=== PATIENT | female | born 1995 | race Two or more races ===

== ENCOUNTER 2018-12-24 08:58 | Emergency (ER) | payer MEDICAID ==
[~2018-12-24] VITALS: Ht 154.9 cm; Wt 48.6 kg
[2018-12-24 09:12] VITALS: BP 110/70
[2018-12-24 09:31] LABS: Basophils # (auto) 0.1 uL; Eosinophils # (auto) 0.1 uL; Hemoglobin 12.2 g/dL (12.2-16.2); Monocytes # (auto) 0.5 uL; Neutrophils # (auto) 4.2 uL; White Blood Cell 6.8 10^3/uL (4.4-10.8)
[2018-12-24 09:33] LABS: Basophils % (auto) 1.2 % (0.0-2.0); Eosinophils % (auto) 1.6 % (0.0-7.0); Hematocrit 38.1 % (36.0-46.0); Lymphocytes % (auto) 28.6 % (10.0-50.0); Mean Corpuscular Hemoglobin 27.3 pg (28.0-32.0); Mean Corpuscular Hgb Conc. 32.1 g/dL (32.0-36.0); Monocytes % (auto) 7.6 % (0.0-12.0); Platelet Count (auto) 329 10^3/uL (140-450); Red Blood Cells 4.48 10^6/uL (4.0-5.20); Red Cell Distribution Width 17.8 % (11.8-14.3)
[2018-12-24 09:48] LABS: Albumin 3.6 g/dL (3.4-5.0); Calcium 8.4 mg/dL (8.5-10.1); Potassium 3.6 mmol/L (3.5-5.1)
[2018-12-24 09:51] LABS: Bilirubin, Total 0.6 mg/dL (0.2-1.0); Total Protein 7.2 g/dL (6.4-8.2)
[2018-12-24 10:06] LABS: Urine Blood 2+ /uL (Negative); Urine Specific Gravity 1.013 (1.001-1.035)
[2018-12-24 10:12] LABS: Urine WBC 5 /hpf (0 - 5)
[2018-12-24 10:13] LABS: Urine Bacteria FEW /hpf (None Seen); Urine Mucus FEW (None Seen)
[2018-12-24] MEDS ORDERED: KETOROLAC TROMETH 60MG/2ML VIAL IM ONE (12:00)
== END 2018-12-24 12:14 | disposition home or self-care (01) ==
LOC: ER 08:58
DX: N93.8 Other specified abnormal uterine and vaginal bleeding (principal)
CPT/HCPCS: 36415; 76856; 80053; 81001; 81025; 84702; 85025; 96372; 99284; J1885

== ENCOUNTER 2019-03-12 23:43 | Emergency (ER) | payer SELFPAY ==
[~2019-03-12] VITALS: Ht 152.4 cm; Wt 49.9 kg
[2019-03-13] VITALS: BP 112/74
[2019-03-13] MEDS ORDERED: METHOCARBAMOL 500 MG TAB PO ONE (04:49)
[2019-03-13] MEDS ORDERED: IBUPROFEN 800 MG TAB PO ONE (04:49)
== END 2019-03-13 05:14 | disposition home or self-care (01) ==
LOC: ER 23:44
DX: S00.93XA Contusion of unspecified part of head, initial encounter (principal); M25.531 Pain in right wrist; W01.0XXA Fall on same level from slipping, tripping and stumbling without subsequent striking against object, initial encounter; Y93.89 Activity, other specified; Y99.8 Other external cause status; Y92.89 Other specified places as the place of occurrence of the external cause
CPT/HCPCS: 70450; 73110